=== PATIENT | male | born 1990 | race African-American/Black ===

== ENCOUNTER 2016-08-14 21:25 | Emergency (ER) | payer SELFPAY ==
[~2016-08-14] VITALS: Ht 182.9 cm; Wt 104.3 kg
[2016-08-14 22:15] VITALS: BP 126/89
[2016-08-14] MEDS ORDERED: IBUPROFEN 600 MG TAB PO ONE (23:15)
== END 2016-08-14 23:55 | disposition home or self-care (01) ==
LOC: ER 21:54
DX: B07.9 Viral wart, unspecified (principal); F17.210 Nicotine dependence, cigarettes, uncomplicated

== ENCOUNTER 2017-12-29 16:13 | Emergency (ER) | payer MEDICAID, OTHER ==
[~2017-12-29] VITALS: Ht 182.9 cm; Wt 97.5 kg
[2017-12-29 17:28] VITALS: BP 159/72
== END 2017-12-29 17:51 | disposition home or self-care (01) ==
LOC: ER 16:17
DX: K02.9 Dental caries, unspecified (principal); F17.210 Nicotine dependence, cigarettes, uncomplicated